=== PATIENT | female | born 1950 | race Caucasian/White ===

== ENCOUNTER 2018-04-27 18:15 | Inpatient (IN) | payer MEDICARE, OTHER ==
[~2018-04-27] VITALS: Ht 157.5 cm; Wt 70.3 kg
[~2018-04-27 18:15] MED LIST: ESCI20TA PO; ESOM40CA PO; LORA1TAB PO
[2018-04-27] MEDS ORDERED: IV NORMAL SALINE 1000 ML BAG IV ONE ×2 (18:45→19:30)
[2018-04-27 19:18] LABS: BASOPHILS # (AUTO) 0.1 K/uL (0.0-8.0); BASOPHILS % (AUTO) 0.9 % (0.0-2.0); EOSINOPHILS # (AUTO) 0.1 K/uL (0.0-0.7); EOSINOPHILS % (AUTO) 0.8 % (0.0-7.0); HEMATOCRIT 39.5 % (31.2-41.9); HEMOGLOBIN 13.4 g/dL (10.9-14.3); LYMPHOCYTES # (AUTO) 2.6 K/uL (20.0-40.0); MEAN CORPUSCULAR HEMOGLOBIN 30.1 uug (24.7-32.8); MEAN CORPUSCULAR HGB CONC 34 g/dL (32.3-35.6); MEAN CORPUSCULAR VOLUME 88.7 fL (75.5-95.3); MONOCYTES # (AUTO) 0.6 K/uL (2.0-10.0); MONOCYTES % (AUTO) 6.2 % (0.0-11.0); NEUTROPHILS # (AUTO) 6.3 K/uL (1.8-8.9); NEUTROPHILS % (AUTO) 65.1 % (38.5-71.5); PLATELET COUNT (AUTO) 240 K/uL (179-408); RED BLOOD CELL COUNT(AUTO) 4.45 MIL/uL (3.63-4.92); WHITE BLOOD COUNT (AUTO) 9.6 K/uL (3.8-11.8)
[2018-04-27 19:24] LABS: BILIRUBIN,DIRECT 0.1 mg/dL (0.0-0.2); BILIRUBIN,TOTAL 0.5 mg/dL (0.2-1.0); CREATININE 0.9 mg/dL (0.6-1.3); POTASSIUM 3.4 mmol/L (3.5-5.1); TOTAL PROTEIN, SERUM 7.7 g/dL (6.4-8.2)
[2018-04-27] MEDS ORDERED: MAG HYDROX/AL HYDROX/SIMETH 30 ML LIQUID UDC ONE (19:29)
[2018-04-27] MEDS ORDERED: ONDANSETRON 4 MG/2 ML VIAL ONE ×2 (19:29→23:05)
[2018-04-27] MEDS ORDERED: PANTOPRAZOLE SODIUM 40 MG VIAL ONE (19:29)
[2018-04-27] MEDS ORDERED: ONDANSETRON 4 MG/2 ML VIAL IV ONE ×2 (19:30→23:00)
[2018-04-27] MEDS ORDERED: PANTOPRAZOLE SODIUM 40 MG VIAL IV ONE (19:30)
[2018-04-27] MEDS ORDERED: LIDOCAINE VISCUS 2% 15 ML UDC MM ONE (19:30)
[2018-04-27] MEDS ORDERED: MAG HYDROX/AL HYDROX/SIMETH 30 ML LIQUID UDC PO ONE (19:30)
[2018-04-27] MEDS ORDERED: LIDOCAINE VISCUS 2% 15 ML UDC ONE (19:32)
[2018-04-27] MEDS ORDERED: MORPHINE SULFATE 4 MG/1 ML DISP.SYRIN ONE ×2 (20:30→21:02)
[2018-04-27] MEDS ORDERED: MORPHINE SULFATE 2 MG/1 ML DISP.SYRIN IV ONE ×2 (20:45→21:00)
[2018-04-27] MEDS ORDERED: METOCLOPRAMIDE HCL 10 MG/2 ML VIAL IV ONE (21:00)
[2018-04-27] MEDS ORDERED: METOCLOPRAMIDE HCL 10 MG/2 ML VIAL ONE (21:01)
[2018-04-27] MEDS ORDERED: HYDROMORPHONE 1 MG/1 ML DISP.SYRIN IV ONE ×2 (21:30→22:30)
[2018-04-27] MEDS ORDERED: HYDROMORPHONE 2 MG/1 ML DISP.SYRIN ONE ×2 (21:32→22:29)
[2018-04-27] MEDS ORDERED: CLON0.5T4 PO (22:33)
[2018-04-27] MEDS ORDERED: METO-295 PO (22:33)
[2018-04-27] MEDS ORDERED: CLONAZEPAM 0.5 MG TABLET PO PRN (23:15)
--- NOTE | 2018-04-27 23:28 | NUR ---
GAVE REPORT TO JUVENAL CUELLAR
[2018-04-27] MEDS ORDERED: MELATONIN 3 MG TABLET PO PRN (23:30)
[2018-04-27] MEDS ORDERED: POTASSIUM CHLORIDE 20 MEQ in IV 1/2NS 1000 ML 1,000 ML IV PRN (23:30)
[2018-04-27] MEDS ORDERED: ACETAMINOPHEN 325 MG TABLET PO PRN (23:30)
--- NOTE | 2018-04-27 23:35 | NUR ---
SURYA (SON) PHONE # [phone]
--- NOTE | 2018-04-27 23:35 | NUR ---
Pt. admitted to [facility] , under care of Dr. JUANA MURPHY. Belongs List completed
[2018-04-28] VITALS: BP 120/53
--- NOTE | 2018-04-28 | NUR ---
Received patient from ER via [email or web address]. A/O x 4. Mainly [place] speaking but able to understand Occitan. Able to ambulate with steady gait. C/o nausea. Admission protocol followed. Vital signs stable. Skin check done, intact. Belonging list completed and filed in the chart. Safety initiated. Call light within reach. Room is kept clutter free. Bed in low and locked position. Bed alarm on. Will continue to monitor.
--- NOTE | 2018-04-28 02:16 | NUR ---
Patient vomited twice already. PRN Reglan is in back order. Left a message for Dr. Paerce but no response. Will continue to monitor.
[2018-04-28 04:00] VITALS: BP 114/59
[2018-04-28] MEDS ORDERED: ONDANSETRON 4 MG/2 ML VIAL IV PRN (04:00)
[2018-04-28] MEDS ORDERED: METOCLOPRAMIDE HCL 10 MG/2 ML VIAL ONE (04:16)
[2018-04-28] MEDS: HYDROMORPHONE 2 MG/1 ML DISP.SYRIN IV PRN ×3 (04:19→16:00)
[2018-04-28] MEDS: METOCLOPRAMIDE HCL 10 MG/2 ML VIAL IV PRN ×3 (04:20→16:00)
--- NOTE | 2018-04-28 04:23 | NUR ---
Patient vomited green/brown fluid color. Reached out to Dr. Pearce 3 times to no avail. No return call. Charge nurse Lisa was able to call ER to see if they have Reglan in their pyxis. They did. Nurs. Sup. was able to bring up the reglan 10 mg. Called after hours pharmacy to verify the order. Medication given to patient with Dilaudid 1 mg with no adverse effect. Resting now. Will continue to monitor.
--- NOTE | 2018-04-28 04:27 | NUR ---
According to patient "I was given Morphine 2 mg in ER" despite her stating that she was allergic to it. It makes her nauseated.
--- NOTE | 2018-04-28 05:41 | NUR ---
No changes t/o shift. C/o nausea. 5+ episode of emesis about total of appox. 500 ml of brown/green fluids. Notified plunket nurse, Nurse Sup and called manager digital ad operations Doctor but no response. Apparently, she was given Morphine in the ER despite being allergic to it. It makes her nauseous. Patient remains A/O x 4. Mainly [place] Islander speaking but able to understand Kyrgyz. IVF infusing on the Right AC. Able to ambulate with steady gait. Safety and comfort measures maintained t/o shift. Room is kept clutter free. Bed in low and locked position. Bed alarm on. All meds given as ordered. All needs met.
[2018-04-28] MEDS: PANTOPRAZOLE SODIUM 40 MG TABLET.DR PO SCH (06:13)
[2018-04-28 06:51] LABS: BASOPHILS % (AUTO) 0.2 % (0.0-2.0); HEMATOCRIT 34.7 % (31.2-41.9); HEMOGLOBIN 11.8 g/dL (10.9-14.3); LYMPHOCYTES # (AUTO) 0.9 K/uL (20.0-40.0); LYMPHOCYTES % (AUTO) 9.3 % (20.5-51.5); MEAN CORPUSCULAR HEMOGLOBIN 30.3 uug (24.7-32.8); MEAN CORPUSCULAR HGB CONC 34 g/dL (32.3-35.6); MEAN CORPUSCULAR VOLUME 88.9 fL (75.5-95.3); MONOCYTES # (AUTO) 0.3 K/uL (2.0-10.0); NEUTROPHILS # (AUTO) 8.5 K/uL (1.8-8.9); NEUTROPHILS % (AUTO) 87.5 % (38.5-71.5); PLATELET COUNT (AUTO) 199 K/uL (179-408); RED BLOOD CELL COUNT(AUTO) 3.91 MIL/uL (3.63-4.92); WHITE BLOOD COUNT (AUTO) 9.7 K/uL (3.8-11.8)
[2018-04-28 07:03] LABS: CREATININE 0.8 mg/dL (0.6-1.3); MAGNESIUM 1.8 mg/dL (1.8-2.4); POTASSIUM 4.2 mmol/L (3.5-5.1)
[2018-04-28 07:05] LABS: THYROID STIMULATING HORMONE 0.729 mIU/mL (0.358-3.740)
--- NOTE | 2018-04-28 07:47 | NUR ---
PATIENT STATED FEELS VERY NAUSEOUS TRYING TO VOMIT BUT NOTHING COMING OUT VERY ANXIOUS PATIENT CONVINCED TO TAKE KLONOPIN FOR ANXIETY BECAUSE HER REGLAN IS ORDERED Q6H AND SHE GOT A DOSE AT 0420 AND SHE ACCEPTED.PLACED A CALL TO DR MURPHY AND LEFT HIM A MESSAGE PATIENT NOTIFIED.
--- NOTE | 2018-04-28 08:29 | NUR ---
DR MURPHY RETURNED CALL WITH NEW ORDERS AND NOTED
[2018-04-28] MEDS: ONDANSETRON 4 MG/2 ML VIAL IV PRN ×3 (08:52→20:27)
[2018-04-28 11:03] VITALS: BP 104/53
[2018-04-28] MEDS ORDERED: POTASSIUM CHLORIDE 20 MEQ in IV D5/ 0.9% NACL 1,000 ML IV PRN (12:15)
--- NOTE | 2018-04-28 12:25 | NUR ---
PATIENT SEEN AND EXAMINED BY DR MURPHY PATIENT STILL C/O NAUSEA MD STATED TO GIVE HER A DOSE OF ZOFRAN NOW AND THEN CHANGE HER IVF TO D5NS PLUS POTASSIUM STATED TO KEEP PATIENT NPO AND THAT HE WILL CALL THE GI TEAM TO SEE PATIENT.
--- NOTE | 2018-04-28 13:44 | NUR ---
PATIENT SEEN AND EXAMINED BY DR SILVESTRE WITH ORDER FOR ENDOSCOPY TOMORROW AND NOTED.
[2018-04-28] MEDS: LACTOBACILLUS RHAMNOSUS GG 1 EACH CAPSULE PO SCH ×2 (13:45→20:27)
[2018-04-28 15:21] VITALS: BP 118/53
--- NOTE | 2018-04-28 16:21 | NUR ---
PATIENT REQUESTING FOR FOOD STATED THAT HER STOMACH HURTS MORE BECAUSE SHE HAS NOT EATEN FOR A WHILE SO I CALLED DR MURPHY SPOKE WITH HIM AND HE STATED TO GIVE PATIENT FULL LIQUIDS DIET THEN PUT HER BACK ON NPO AFTER MIDNITE PATIENT AWARE.
[2018-04-28 17:33] LABS: *BILIRUBIN,URIN NEGATIVE (NEGATIVE); *BLOOD, URINE 1+ (NEGATIVE); *CLARITY,URINE CLOUDY (CLEAR); *COLOR,URINE DARK YELLOW (YELLOW); *KETONES,URINE 1+ (NEGATIVE); *PROTEIN,URINE NEGATIVE (NEGATIVE); *UROBILINOGEN,URINE 0.2 E.U./dl (NORMAL); LEUKOCYTE ESTERASE ,URINE NEGATIVE (NEGATIVE); NITRITE, URINE NEGATIVE (NEGATIVE); PH,URINE 5.5 (5.0-8.0); UGLUCOSE NEGATIVE (NEGATIVE)
[2018-04-28 17:47] LABS: BACTERIA,URINE MANY /HPF (NONE SEEN); SQUAMOUS EPITHELIAL CELL,UR FEW /HPF (NONE SEEN); WBC,URINE 0-3 /HPF (0-3)
--- NOTE | 2018-04-28 18:00 | NUR ---
PATIENT STATED HAD SMALL SPIT UP AFTER SHE DRANK THE APPLE JUICE BUT IS OKAY WITH THE PUDDING INSTRUCTED HER TO TAKE IT SLOWLY .
--- NOTE | 2018-04-28 19:30 | NUR ---
Received patient laying comfortably in bed. Son at bedside. A/O x 4. Mainly Pakistani speaking but able to understand Romansh. Able to ambulate with steady gait. C/o nausea. Safety initiated. Call light within reach. Room is kept clutter free. Bed in low and locked position. Bed alarm on. Will continue to monitor.
[2018-04-28 20:00] VITALS: BP 124/52
--- NOTE | 2018-04-28 20:56 | NUR ---
IV Infiltrated on the right AC. Will attempt to start a new one.
--- NOTE | 2018-04-28 21:10 | NUR ---
New IV is on the left FA #20. Was started by ER nurse Alexys. Right arm elevated. Will continue to monitor.
[2018-04-28] MEDS ORDERED: MELATONIN 3 MG TABLET ONE (22:03)
--- NOTE | 2018-04-28 23:00 | NUR ---
Patient changed her mind, she does not want to take Melatonin sleeping medication after all. Will send it back to Pharmacy in the AM because it was given to me by the Nurs Sup because Py[facility] in our unit did not have it in stock.
[2018-04-29 04:35] VITALS: BP 125/47
--- NOTE | 2018-04-29 05:36 | NUR ---
No changes t/o shift. Patient no c/o pain or SOB. A/O x 4. Only 1 episode of emesis. Zofran was effective. Skin intact. Ambulates with minimal assists. Vital signs stable. No fever. All meds given as ordered. Room remains clutter free. Bed is in low and locked position. Safety and comfort measures maintained t/o shift. All needs met.
[2018-04-29] MEDS: PANTOPRAZOLE SODIUM 40 MG TABLET.DR PO SCH (06:08)
[2018-04-29 07:07] LABS: BASOPHILS % (AUTO) 0.4 % (0.0-2.0); EOSINOPHILS # (AUTO) 0.1 K/uL (0.0-0.7); EOSINOPHILS % (AUTO) 0.7 % (0.0-7.0); HEMATOCRIT 34.9 % (31.2-41.9); HEMOGLOBIN 11.9 g/dL (10.9-14.3); LYMPHOCYTES # (AUTO) 3.2 K/uL (20.0-40.0); LYMPHOCYTES % (AUTO) 24.4 % (20.5-51.5); MEAN CORPUSCULAR HEMOGLOBIN 30.3 uug (24.7-32.8); MEAN CORPUSCULAR HGB CONC 34 g/dL (32.3-35.6); MEAN CORPUSCULAR VOLUME 88.5 fL (75.5-95.3); MONOCYTES # (AUTO) 1.1 K/uL (2.0-10.0); MONOCYTES % (AUTO) 8.3 % (0.0-11.0); NEUTROPHILS # (AUTO) 8.7 K/uL (1.8-8.9); NEUTROPHILS % (AUTO) 66.2 % (38.5-71.5); PLATELET COUNT (AUTO) 208 K/uL (179-408); RED BLOOD CELL COUNT(AUTO) 3.94 MIL/uL (3.63-4.92); WHITE BLOOD COUNT (AUTO) 13.1 K/uL (3.8-11.8)
[2018-04-29 07:29] LABS: BILIRUBIN,TOTAL 0.5 mg/dL (0.2-1.0); CREATININE 0.9 mg/dL (0.6-1.3); MAGNESIUM 1.9 mg/dL (1.8-2.4); PHOSPHOROUS 2.3 mg/dL (2.5-4.9); TOTAL PROTEIN, SERUM 6.6 g/dL (6.4-8.2)
--- NOTE | 2018-04-29 07:45 | NUR ---
RESTING IN BED STATED MORE COMFORTABLE TODAY DENIES PAIN/DISCOMFORTS/NAUSEA OR VOMITING.REMAIN NOTHING BY MOUTH PENDING ENDOSCOPY TODAY.REMAIN ON IV FLUIDS ORDERED LEFT FOREARM SITE IS PATENT WITH NO S/S OF INFILTERATION ON SITE MADE COMFORTABLE AWARE THAT SHE CANNOT EAT OR DRINK UNTIL FURTHER ORDERS.
[2018-04-29] MEDS: LACTOBACILLUS RHAMNOSUS GG 1 EACH CAPSULE PO SCH (08:27)
--- NOTE | 2018-04-29 10:30 | NUR ---
PATIENT PICKED UP BY BED AWAKE ALERT AND ORIENTED TO THE GI LAB FOR ENDOSCOPY ORDERED.
[2018-04-29 11:03] VITALS: BP 102/68
--- NOTE | 2018-04-29 12:15 | NUR ---
PATIENT RETURNED FROM GI LAB AWAKE ALERT AND ORIENTED STATED THAT SHE FEELS MUCH BETTER MADE COMFORTABLE AND WILL OBSERVE
[2018-04-29 12:38] LABS: CREATININE 0.8 mg/dL (0.6-1.3); POTASSIUM 4.2 mmol/L (3.5-5.1)
[2018-04-29 12:44] LABS: BILIRUBIN,TOTAL 0.5 mg/dL (0.2-1.0); TOTAL PROTEIN, SERUM 6.4 g/dL (6.4-8.2)
--- NOTE | 2018-04-29 13:15 | NUR ---
DR SILVESTRE NOTIFIED OF THE RESULTS OF THE LABS THAT SHE ORDERED WITH NO NEW ORDERS AT THIS TIME.
--- NOTE | 2018-04-29 14:19 | NUR ---
PATIENT TOLERATED HER SOUP AND YOGURT AND FLUIDS STATED WILL EAT THE REST SLOWLY.
[2018-04-29] MEDS ORDERED: LACT1CAP57 PO (15:18)
[2018-04-29] MEDS ORDERED: PANT40TA2 PO (15:18)
[2018-04-29 15:37] VITALS: BP 139/66
[2018-04-29] MEDS ORDERED: NEUTRA PHOS PACKET PO ONE (16:15)
--- NOTE | 2018-04-29 16:18 | NUR ---
DISCHARGE INSTRUCTIONS AND PRESCRIPTIONS GIVEN TO THE PATIENT AND SHE WAS INSTRUCTED TO CONTINUE WITH MEDICATIONS ORDERED AND CONTINUE WITH DIET TOLERATED AND FOLLOW UP WITH HER PRIMARY DOCTOR WITHIN THE NEXT ONE TO TWO WEEKS AND SHE EXPRESSED UNDERSTANDING SHE IS AWAITING FOR HER TO PICK HER UP.[facility] EDUCATED HER ON HER NEW MEDICATIONS.
[2018-04-29] MEDS ORDERED: LIDOCAINE HCL 1% 20 ML VIAL MC ONE (16:44)
[2018-04-29] MEDS ORDERED: PROPOFOL 200 MG/20 ML BOTTLE IV ONE (16:44)
--- NOTE | 2018-04-29 16:45 | NUR ---
PATIENT DISCHARGED PICKED UP BY HER IN SATISFACTORY CONDITION WITH ALL HER PERSONAL BELONGINGS PATIENT STATED WILL MAKE OWN APPOINTMENT FOR FOLLOW UP.
[2018-04-30 07:08] LABS: HEPATITIS A AB, IgM Negative (Negative); HEPATITIS B SURFACE AB Non Reactive (.); HEPATITIS B SURFACE AG Negative (Negative)
[2018-05-01 08:09] LABS: HEPATITIS Be ANTIGEN Negative (Negative)
== END 2018-04-29 16:45 | disposition home or self-care (01) | DRG 392 ==
LOC: ER 18:17 → MED 23:41
PROVIDERS: ADMIT Internal Medicine; ATTEND Internal Medicine
PROC: 0DB78ZX Excision of Stomach, Pylorus, Via Natural or Artificial Opening Endoscopic, Diagnostic (ICD-10-PCS; principal; 2018-04-29 11:22)
DX: K29.70 Gastritis, unspecified, without bleeding (principal); R10.9 Unspecified abdominal pain; E78.5 Hyperlipidemia, unspecified; E87.6 Hypokalemia; R53.1 Weakness; R73.9 Hyperglycemia, unspecified; J47.9 Bronchiectasis, uncomplicated; Z90.49 Acquired absence of other specified parts of digestive tract; F41.9 Anxiety disorder, unspecified; F32.9 Major depressive disorder, single episode, unspecified; F45.9 Somatoform disorder, unspecified; K75.9 Inflammatory liver disease, unspecified
CPT/HCPCS: 36415; 70030-TC; 71045; 76705; 82378; 83550; 83690; 83735; 84100; 84443; 85025; 85730; 86704; 86705; 86706; 86709; 86803; 87077; 87086; 87340; 87350; 88342; 93005; A4217; A4663; C9113; J1170; J2270; J2405; J2765; J3480; J3490; J7030; J7042

== ENCOUNTER 2024-08-31 07:33 | Emergency (ER) | payer MEDICARE, OTHER ==
[~2024-08-31] VITALS: Ht 165.1 cm; Wt 68.9 kg
[~2024-08-31 07:33] MED LIST changes: +CLON0.5T4 PO; -ESCI20TA PO; -ESOM40CA PO; +LACT1CAP57 PO; -LORA1TAB PO; +METO-295 PO; +PANT40TA2 PO
[2024-08-31] MEDS ORDERED: IBUPROFEN 800 MG TABLET ONE (07:59)
[2024-08-31] MEDS: IBUPROFEN 800 MG TABLET PO ONE (08:02)
[2024-08-31] MEDS ORDERED: IBUP-1957 PO (09:07)
[2024-08-31 09:11] VITALS: BP 144/89; TEMP 97.8; O2SAT 98
== END 2024-08-31 09:11 | disposition home or self-care (01) ==
LOC: ER 07:33
DX: S52.592A Other fractures of lower end of left radius, initial encounter for closed fracture (principal); Z90.49 Acquired absence of other specified parts of digestive tract; Z87.19 Personal history of other diseases of the digestive system; Z79.899 Other long term (current) drug therapy; Z88.5 Allergy status to narcotic agent; W18.39XA Other fall on same level, initial encounter; Y93.89 Activity, other specified; Y92.89 Other specified places as the place of occurrence of the external cause; Y99.8 Other external cause status
CPT/HCPCS: 73070; 73090; 73100; A4606; A4663